=== PATIENT | male | born 1960 | race Caucasian/White ===

== ENCOUNTER 2019-04-01 05:36 | Day surgery (SDC) | payer BC ==
[~2019-04-01] VITALS: Ht 170.2 cm; Wt 93.0 kg
[2019-04-01] VITALS (11 sets, daily range): BP systolic 101–128; BP diastolic 67–78
[2019-04-01] MEDS ORDERED: NKM (06:22)
[2019-04-01] MEDS ORDERED: LR 1000ml 1,000 ML IVLG SCH (06:26)
--- NOTE | 2019-04-01 06:26 | Anethesia Preoperative Eval ---
Anesthesia Pre-op PMH/ROS General Date of Evaluation: Apr 01, 2019 Time of Evaluation: 07:31 Anesthesiologist: Fernanda ASA Score: ASA 3 Mallampati Score Class I : Soft palate, uvula, fauces, pillars visible Class II: Soft palate, uvula, fauces visible Class III: Soft palate, base of uvula visible Class IV: Only hard plate visible Mallampati Classification: Class II Surgeon: Jenna Diagnosis: Back Pain Surgical Procedure: L ESWL, Stent Placement Anesthesia History: none Family History: no anesthesia problems Allergies: Coded Allergies: No Known Allergies (Unverified , 03/31/19) Medications: see eMAR Patient NPO?: Yes Past Medical History Pulmonary: Reports: CB - CPAP Other: obesity - BMI 33 Anesthesia Pre-op Phys. Exam Physician Exam Last Vital Signs Date Time Temp Pulse Resp B/P (MAP) Pulse Ox O2 Delivery O2 Flow Rate FiO2 04/01/19 06:11 97.5 69 18 128/70 97 Room Air Constitutional: NAD Neurologic: CN 2-12 intact Cardiovascular: RRR Respiratory: CTA Gastrointestinal: S/NT/ND Airway Exam Mallampati Score: Class II MO: full ROM: limited Teeth: missing, intact Anesthesia Pre-op A/P Risk Assessment & Plan Assessment: ASA 3 Plan: GA, SED Status Change Before Surgery: No Pre-Antibiotics Dru gram Ancef IV Given Within 1 Hr of Incision: Yes Time Given: 07:46 Jarod Michael MD Apr 01, 2019 06:26
[2019-04-01] MEDS ORDERED: Atropine Sulfate 0.4mg/ml inj IVP PRN (06:30)
[2019-04-01] MEDS ORDERED: Meperidine 50mg/ml Inj(FOR RIGORS ONLY) IVP PRN (06:30)
[2019-04-01] MEDS ORDERED: Metoclopramide 10mg/2ml Inj IVP PRN (06:30)
[2019-04-01] MEDS ORDERED: Midazolam 2mg/2ml Inj IVP PRN (06:30)
[2019-04-01] MEDS ORDERED: Acetaminophen (Non formulary) 100 ML IV ONE (06:30)
[2019-04-01] MEDS ORDERED: Ketorolac 30mg Inj IV PRN ×2 (06:30)
[2019-04-01] MEDS ORDERED: fentaNYL 100 mcg/2 mL IV PRN (06:30)
[2019-04-01] MEDS ORDERED: Labetalol 5mg/ml 20ml vial IV PRN (06:30)
[2019-04-01] MEDS ORDERED: HYDROcodone/Acetamin 5/325 tab ORAL PRN ×2 (06:30→08:30)
[2019-04-01] MEDS ORDERED: LORazepam Inj 2mg/ml 1ml IV PRN (06:30)
[2019-04-01] MEDS ORDERED: DiphenhydrAMINE 50mg/ml Inj IVP PRN (06:30)
[2019-04-01] MEDS ORDERED: oxyCODONE HCL/Acetaminophen 5/325mg ORAL PRN (06:30)
[2019-04-01] MEDS ORDERED: Hydromorphone 0.5mg/0.5ml inj IVP PRN (06:30)
[2019-04-01] MEDS ORDERED: HYDROcodone/Acetamin 7.5/325 tab ORAL PRN (06:30)
[2019-04-01] MEDS ORDERED: Propofol 200mg/20ml IV ONE (06:49)
[2019-04-01] MEDS ORDERED: Sodium Chloride 10ml vial INJ ONE (06:49)
[2019-04-01] MEDS ORDERED: Dexamethasone 4mg/ml vial ONE (06:49)
[2019-04-01] MEDS ORDERED: Lidocaine 1% MPF 10mg/ml 5ml ONE (06:49)
[2019-04-01] MEDS ORDERED: fentaNYL 100 mcg/2 mL IV ONE (06:49)
[2019-04-01] MEDS ORDERED: Iothalamate Meglumine 60% 30ML INJ ONE (06:59)
[2019-04-01] MEDS ORDERED: ceFAZolin sod 1 GM in NS 55 ML IVPB ONE (07:00)
[2019-04-01] MEDS ORDERED: NS Irrig 4000ml IRRIG ONE (07:03)
[2019-04-01] MEDS ORDERED: NS Irrig 1000ml IRRIG ONE (07:04)
[2019-04-01] MEDS ORDERED: Sterile Water For Irrig 2000ml IRRIG ONE (07:04)
--- NOTE | 2019-04-01 07:06 | Immediate Post-Op Evaluation ---
Immediate Post-Op Evalulation Immediate Post-Op Evalulation Procedure: L ESWL, Stent Placement Date of Evaluation: Apr 01, 2019 Time of Evaluation: 08:58 IV Fluids: 600 LR Blood Products: 0 Estimated Blood Loss: 5 Urinary Output: 0 Blood Pressure Systolic: 111 Blood Pressure Diastolic: 71 Pulse Rate: 64 Respiratory Rate: 16 O2 Sat by Pulse Oximetry: 100 Temperature (Fahrenheit): 99 Pain Score (1-10): 2 Nausea: No Vomiting: No Complications 0 Patient Status: awake, reacts, patent, none Hydration Status: adequate Dru Gram Ancef IV Given Within 1 Hr of Incision: Yes Time Given: 07:31 Jarod Michael MD Apr 01, 2019 07:05
[2019-04-01] MEDS ORDERED: LR 1000ml ONE (07:30)
[2019-04-01] MEDS ORDERED: Sterile Water Irrig 1000ml IRRIG ONE (07:30)
[2019-04-01] MEDS ORDERED: NS Irrig 1000ml ONE (07:30)
--- NOTE | 2019-04-01 07:46 | Pre-Procedure Note/Attestation ---
Pre-Procedure Note/Attestation Complete Prior to Procedure Planned Procedure: left Procedure Narrative: ESWL RIRS left Indications for Procedure Pre-Operative Diagnosis: renal stone Attestation I attest that I discussed the nature of the procedure; its benefits; risks and complications; and alternatives (and the risks and benefits of such alternatives ), prior to the procedure, with the patient (or the patient's legal client support representative). I attest that, if there was a reasonable possibility of needing a blood transfusion, the patient (or the patient's legal client support representative) was given the [facility] standardized written summary, pursuant to the [place] Blood Safety Act ([place] Health and Safety Code # 1645, as amended). I attest that I re-evaluated the patient just prior to the surgery and that there has been no change in the patient's H&P, except as documented below: Kirk West MD Apr 01, 2019 07:46
--- NOTE | 2019-04-01 08:03 | 48 Hour Post Anesthesia Eval ---
Post Anesthesia Evaluation Procedure: L ESWL, Stent Placement Date of Evaluation: Apr 01, 2019 Time of Evaluation: 11:12 Blood Pressure Systolic: 109 0: 68 Pulse Rate: 62 Respiratory Rate: 18 Temperature (Fahrenheit): 98.6 O2 Sat by Pulse Oximetry: 99 Airway: patent Nausea: No Vomiting: No Pain Intensity: 2 Hydration Status: adequate Cardiopulmonary Status: Stable Mental Status/LOC: patient returned to baseline Follow-up Care/Observations: 0 Post-Anesthesia Complications: 0 Follow-up care needed: ready to discharge Jarod Michael MD Apr 01, 2019 08:03
--- NOTE | 2019-04-01 08:25 | Brief Operative Note ---
Immediate Post Operative Note Operative Note Pre-op Diagnosis: renal stone Procedure: rirs eswl left Post-op Diagnosis: same Post-op Diagnosis: same as pre-op Surgeon: David West Anesthesia: general Specimen: none Complications: none Condition: stable Fluids: 500 Estimated Blood Loss: minimal Implant(s) used?: No Kirk West MD Apr 01, 2019 08:25
[2019-04-01] MEDS ORDERED: HYDROmorphone 1mg/ml Carpuject SUBQ PRN (08:30)
[2019-04-01] MEDS ORDERED: D5 1/2NS 1,000 ML IV SCH (08:30)
[2019-04-01] MEDS ORDERED: Tylenol #3 tab (300mg/30mg) ORAL PRN (08:30)
--- NOTE | 2019-04-03 20:30 | Operative Note - Dictated ---
DATE OF OPERATION: 04/01/2019 PREOPERATIVE DIAGNOSIS: Large stone in the left kidney and retained double-J stent. POSTOPERATIVE DIAGNOSIS: Large stone in the left kidney and retained double-J stent. OPERATIONS: Cystoscopy, exchange of the double-J stent, extracorporeal shock wave lithotripsy of the left renal stone with retrograde intrarenal surgery. OPERATED BY: Kirk West M.D. ANESTHESIA: General. FINDINGS: Large stone in the mid calyx of the left kidney. INDICATION FOR SURGERY: The patient had multiple episodes of stone. At this time, he developed left renal colic. CT urogram showed 1 cm stone in the left kidney. Treatment options were explained to him. He was admitted acutely for pain and lack of hydration to [facility] where I put a double-J stent and attempted to first breakage of the stone. He is currently for second-look procedure. PROCEDURE IN DETAIL: The patient was brought to the operating room, placed in lithotomy position, and prepped and draped in standard fashion. Under general anesthesia, cystoscope was introduced. Stent was exchanged during the . Using fluoroscopy, stone was located in the pole of the left kidney and fragmented with 8000 shocks 7 kilovolts with very good results. Lobo catheter left indwelling. The patient tolerated the procedure well. No complications. Kirk West M.D. DR: MARGE JOB#: [id number] CC:
--- NOTE | 2019-04-04 14:40 | Cardiology Report ---
APPROVED REPORT EKG Measurement Heart [id number] ID [id number] Normal sinus rhythm Normal ECG
== END 2019-04-01 10:40 | disposition home or self-care (01) ==
LOC: SUR 05:36
DX: N20.0 Calculus of kidney (principal); G47.33 Obstructive sleep apnea (adult) (pediatric); E66.9 Obesity, unspecified; Z68.32 Body mass index [BMI] 32.0-32.9, adult
CPT/HCPCS: 52356; 93005; C1769; J0690; J1100; J2250; J2405; J2704; J3010; 94003; 94150